=== PATIENT | male | born 1985 | race African-American/Black ===

== ENCOUNTER 2019-12-17 14:38 | Emergency (ER) | payer MEDICAID ==
[~2019-12-17] VITALS: Ht 160 cm; Wt 63.0 kg
[2019-12-17 14:43] VITALS: BP 131/83
== END 2019-12-17 14:53 | disposition left against medical advice (07) ==
LOC: ER 14:52
DX: R07.89 Other chest pain (principal); Z53.21 Procedure and treatment not carried out due to patient leaving prior to being seen by health care provider

== ENCOUNTER 2023-02-27 15:56 | Emergency (ER) | payer MEDICAID ==
[~2023-02-27] VITALS: Ht 182.9 cm; Wt 91.0 kg
[2023-02-27 15:57] VITALS: TEMP 98.4; O2SAT 98
[2023-02-27] MEDS ORDERED: KETOROLAC 60MG/2ML VIAL IM ONE (16:15)
[2023-02-27] MEDS ORDERED: MORPHINE SULFATE 4 MG/ML CPJ (NOT FOR IM USE) IV ONE (17:45)
[2023-02-27] MEDS ORDERED: KETOROLAC 30MG/ML VIAL IM NR (18:00)
[2023-02-27 18:38] VITALS: BP 137/69; PULSE 102; RESP 16
[2023-02-27] MEDS ORDERED: IBUP-2029 MT (21:23)
[2023-02-27] MEDS ORDERED: CYCL10TA21 MT (21:23)
== END 2023-02-27 22:03 | disposition home or self-care (01) ==
LOC: ER 16:09
DX: M54.50 Low back pain, unspecified (principal); Z76.0 Encounter for issue of repeat prescription
CPT/HCPCS: 99285; 72192; 96374; 73502; 72100; 73700; 96372; J1885; J2270